=== PATIENT | male | born 1960 | race Two or more races ===

== ENCOUNTER 2024-03-28 11:14 | Emergency (ER) | payer SELFPAY ==
[~2024-03-28] VITALS: Ht 177.8 cm; Wt 79.3 kg
[2024-03-28 11:21] VITALS: O2SAT 95
[2024-03-28 12:19] LABS: BASOPHILS % 0.4 % (0.0-2.0); EOSINOPHILS % 3.6 % (0.0-5.0); HEMATOCRIT. 44.9 % (42.0-52.0); LYMPHOCYTES % 25.8 % (20.0-50.0); MEAN CORPUSCULAR HEMOGLOBIN 31.8 pg (28.0-32.0); MEAN CORPUSCULAR HGB CONC 33.4 g/dL (31.0-37.0); MEAN PLATELET VOLUME 7.9 fl (7.4-10.4); MONOCYTES % 10.5 % (2.0-8.0); NEUTROPHILS % 59.7 % (40.0-76.0); PLATELET 219 x1000/uL (130-400); RED BLOOD CELL COUNT 4.73 mill/uL (4.7-6.1); RED CELL DISTRIBUTION WIDTH 15.1 % (11.6-14.6); WHITE BLOOD COUNT 5.9 x1000/uL (4.5-11.0)
[2024-03-28 12:29] LABS: CHLORIDE 107 mEq/L (98-107); POTASSIUM 4.1 mEq/L (3.5-5.1); SODIUM 140 mEq/L (136-145)
[2024-03-28 12:30] LABS: CARBON DIOXIDE 28 mEq/L (21-32)
[2024-03-28 12:31] LABS: CALCIUM 8.7 mg/dL (8.7-10.4)
[2024-03-28 12:35] LABS: CREATININE 0.7 mg/dL (0.6-1.3)
[2024-03-28 12:36] LABS: GLUCOSE 102 mg/dL (70-105)
[2024-03-28 12:37] LABS: ALANINE AMINOTRANSFERASE 26 IU/L (10-49); ASPARTATE AMINOTRANSFERASE 32 IU/L (<34)
[2024-03-28 12:38] LABS: BILIRUBIN DIRECT 0.3 mg/dL (<=3.0); BILIRUBIN TOTAL 0.9 mg/dL (0.1-1.0); PROTEIN TOTAL 6.6 g/dL (6.0-8.3)
[2024-03-28 12:48] LABS: UREA NITROGEN BLOOD < 5 mg/dL (9-23)
[2024-03-28 13:29] LABS: BG BASE EXCESS 0.4 mmol/L (-2.0-2.0); BG CARBOXYHEMOGLOBIN 1.1 % (0.5-1.5); BG DEOXYHEMOGLOBIN 3.5 % (0.0-5.0); BG FRACTION INSPIRED OXYGEN 21; BG HCO3 ACT 23.8 mmol/L (22.0-26.0); BG METHEMOGLOBIN 0.1 % (0.0-1.5); BG OXYGEN SATURATION 96.5 % (92.0-98.5); BG OXYHEMOGLOBIN 95.3 % (94.0-97.0); BG PCO2 35.1 mmHg (35.0-45.0); BG PH 7.449 (7.350-7.450); BG PO2 87.2 mmHg (75.0-100.0); BG SAMPLE SITE RIGHT RADIAL; BG VENT MODE ROOM AIR
[2024-03-28] MEDS ORDERED: TOPUD MT (13:39)
[2024-03-28 14:30] VITALS: BP 137/67; PULSE 67; RESP 18; TEMP 98
== END 2024-03-28 14:29 | disposition home or self-care (01) ==
LOC: ER 11:14
DX: J06.9 Acute upper respiratory infection, unspecified (principal); Z98.890 Other specified postprocedural states
CPT/HCPCS: 36415; 36600; 71045; 80048; 80076; 82375; 82805; 85025; 99284

== ENCOUNTER 2024-06-13 09:18 | Inpatient (IN) | payer SELFPAY ==
[~2024-06-13] VITALS: Ht 182.9 cm; Wt 90.7 kg
[~2024-06-13 09:18] MED LIST: TOPUD MT
[2024-06-13] MEDS: KETOROLAC 15MG/ML VIAL IM ONE (10:52)
[2024-06-13] MEDS: GABAPENTIN 300MG CAPSULE PO ONE (10:52)
[2024-06-13 12:02] LABS: BASOPHILS % 0.3 % (0.0-2.0); HEMOGLOBIN. 15.6 g/dL (14.0-18.0); LYMPHOCYTES % 23.1 % (20.0-50.0); MEAN CORPUSCULAR HEMOGLOBIN 31.3 pg (28.0-32.0); MEAN CORPUSCULAR HGB CONC 32.6 g/dL (31.0-37.0); MEAN CORPUSCULAR VOLUME 96.1 fL (80.0-94.0); MEAN PLATELET VOLUME 7.9 fl (7.4-10.4); MONOCYTES % 11.1 % (2.0-8.0); NEUTROPHILS % 64.5 % (40.0-76.0); PLATELET 258 x1000/uL (130-400); RED BLOOD CELL COUNT 4.99 mill/uL (4.7-6.1); RED CELL DISTRIBUTION WIDTH 13.6 % (11.6-14.6); WHITE BLOOD COUNT 6.9 x1000/uL (4.5-11.0)
[2024-06-13 12:10] LABS: CHLORIDE 104 mEq/L (98-107); POTASSIUM 4.9 mEq/L (3.5-5.1); SODIUM 137 mEq/L (136-145)
[2024-06-13 12:12] LABS: CALCIUM 9.5 mg/dL (8.7-10.4); CARBON DIOXIDE 27 mEq/L (21-32)
[2024-06-13 12:16] LABS: CREATININE 0.9 mg/dL (0.6-1.3)
[2024-06-13 12:17] LABS: GLUCOSE 96 mg/dL (70-105); UREA NITROGEN BLOOD 7 mg/dL (9-23)
[2024-06-13 12:22] LABS: INR 0.9; PROTHROMBIN TIME 10.1 sec (9.6-11.0)
[2024-06-13] MEDS ORDERED: IPRATROPIUM/ALBUTEROL 0.5-3(2.5)MG/3ML NEB HHN PRN (14:15)
[2024-06-13] MEDS ORDERED: CLONIDINE 0.1MG TABLET PO PRN (14:15)
[2024-06-13] MEDS ORDERED: MAGNESIUM/ALUMINUM HYDROXIDE/SIMETHICONE 30ML UDC PO PRN (14:15)
[2024-06-13] MEDS ORDERED: ACETAMINOPHEN 325MG TABLET PO PRN ×2 (14:15)
[2024-06-13] MEDS ORDERED: ONDANSETRON HCL 4MG/2ML INJ IV PRN (14:15)
[2024-06-13] MEDS ORDERED: GUAIFENESIN 200MG/10ML SUGAR FREE UDC PO PRN (14:15)
[2024-06-13] MEDS ORDERED: NALOXONE HCL 0.4MG/ML VIAL IV PRN (14:30)
[2024-06-13] MEDS: ENOXAPARIN 40MG/0.4ML SYR SUBCUT SCH (15:16)
[2024-06-13 17:30] VITALS: BP 133/85; PULSE 58; RESP 20; TEMP 36.61404; TEMP 36.6404; O2SAT 99
[2024-06-13] MEDS: HYDROCODONE/ACETAMINOPHEN 5/325MG TABLET PO PRN (17:54)
[2024-06-13] MEDS ORDERED: SPIR100T5 PO (18:41)
[2024-06-13] MEDS ORDERED: ESTR20VI7 IM (18:43)
[2024-06-13 20:00] VITALS: BP 151/76; PULSE 72; RESP 18; TEMP 36.72516; O2SAT 98
[2024-06-13] MEDS: ATORVASTATIN CALCIUM 40MG TABLET PO SCH (21:05)
[2024-06-14] VITALS: BP 117/68; PULSE 58; RESP 18; TEMP 36.78072; O2SAT 97
[2024-06-14 00:55] LABS: CREATINE KINASE 58 IU/L (46-171)
[2024-06-14 00:57] LABS: TROPONIN I HIGH SENSITIVITY 4 ng/L (3.0-53)
[2024-06-14 04:00] VITALS: BP 118/55; PULSE 63; RESP 19; TEMP 36.61404; O2SAT 98
[2024-06-14 07:31] LABS: CARBON DIOXIDE 26 mEq/L (21-32); CHLORIDE 103 mEq/L (98-107); POTASSIUM 4.5 mEq/L (3.5-5.1); SODIUM 136 mEq/L (136-145)
[2024-06-14 07:32] LABS: CALCIUM 9.6 mg/dL (8.7-10.4)
[2024-06-14 07:36] LABS: GLUCOSE 80 mg/dL (70-105)
[2024-06-14 07:37] LABS: CREATINE KINASE 54 IU/L (46-171); TRIGLYCERIDE 269 mg/dL (0-150); TROPONIN I HIGH SENSITIVITY < 4 ng/L (3.0-53); UREA NITROGEN BLOOD 13 mg/dL (9-23)
[2024-06-14 07:38] LABS: LDL CHOLESTEROL 131 mg/dL (5-100)
[2024-06-14 07:39] LABS: CHOLESTEROL 212 mg/dL (<200); HDL CHOLESTEROL 45 mg/dL (>55); T4 FREE 1.22 ng/dL (0.89-1.76)
[2024-06-14 07:40] LABS: THYROID STIMULATING HORMONE 6.29 uIU/mL (0.55-4.78)
[2024-06-14 07:55] LABS: BASOPHILS % 0.4 % (0.0-2.0); EOSINOPHILS % 1.2 % (0.0-5.0); HEMATOCRIT. 48.1 % (42.0-52.0); HEMOGLOBIN. 15.8 g/dL (14.0-18.0); LYMPHOCYTES % 42.5 % (20.0-50.0); MEAN CORPUSCULAR HEMOGLOBIN 32.1 pg (28.0-32.0); MEAN CORPUSCULAR HGB CONC 32.9 g/dL (31.0-37.0); MEAN CORPUSCULAR VOLUME 97.5 fL (80.0-94.0); MEAN PLATELET VOLUME 8.7 fl (7.4-10.4); MONOCYTES % 12.4 % (2.0-8.0); NEUTROPHILS % 43.5 % (40.0-76.0); PLATELET 225 x1000/uL (130-400); RED BLOOD CELL COUNT 4.93 mill/uL (4.7-6.1); RED CELL DISTRIBUTION WIDTH 13.5 % (11.6-14.6); WHITE BLOOD COUNT 6.9 x1000/uL (4.5-11.0)
[2024-06-14 07:59] LABS: CLARITY URINE CLEAR (CLEAR); COLOR URINE YELLOW (YELLOW); GLUCOSE URINE NEGATIVE (NEGATIVE); KETONES URINE NEGATIVE (NEGATIVE); LEUKOCYTE ESTERASE URINE 2+ (NEGATIVE); NITRITE URINE NEGATIVE (NEGATIVE); OCCULT BLOOD URINE NEGATIVE (NEGATIVE); PH URINE 5.5 (4.5-8.0); PROTEIN URINE NEGATIVE (NEGATIVE); SPECIFIC GRAVITY URINE 1.012 (1.005-1.030); UROBILINOGEN URINE 0.2 E.U./dL (0.2-1.0)
[2024-06-14 08:00] VITALS: BP 122/70; PULSE 84; RESP 18; TEMP 36.55848; O2SAT 97
[2024-06-14 08:10] LABS: *AMPHETAMINES SCREEN URINE NEGATIVE (NEGATIVE); *BARBITURATES SCREEN URINE NEGATIVE (NEGATIVE); *BENZODIAZEPINES SCREEN URINE NEGATIVE (NEGATIVE); *COCAINE SCREEN URINE NEGATIVE (NEGATIVE); CANNABINOID URINE SCREEN NEGATIVE (NEGATIVE); ECSTASY MDMA SCREEN URINE NEGATIVE (NEGATIVE); METHADONE URINE SCREEN NEGATIVE (NEGATIVE); OPIATES URINE SCREEN PRESUMPTIVE POSITIVE (NEGATIVE); PHENCYCLIDINE URINE SCREEN NEGATIVE (NEGATIVE)
[2024-06-14 08:15] LABS: BACTERIA URINE 1+; RBC URINE 0-2 /hpf (0-2); SQUAMOUS EPITHELIAL CELL URINE NONE SEEN /lpf (RARE/1+); YEAST URINE NONE SEEN
[2024-06-14] MEDS: ASPIRIN 81MG TABLET PO SCH (09:03)
[2024-06-14 12:00] VITALS: BP 111/73; PULSE 89; RESP 18; TEMP 36.3918; O2SAT 98
[2024-06-14 16:00] VITALS: BP 110/71; PULSE 84; RESP 18; TEMP 36.6696; O2SAT 97
[2024-06-14] MEDS ORDERED: CYCLOBENZAPRINE 10MG TABLET PO PRN (18:30)
[2024-06-14 20:00] VITALS: BP 118/71; PULSE 55; RESP 18; TEMP 36.78072; O2SAT 97
[2024-06-15] VITALS: BP 145/65; PULSE 50; RESP 18; TEMP 36.3918; O2SAT 98
[2024-06-15 04:00] VITALS: BP 140/65; PULSE 54; RESP 18; TEMP 36.72516; O2SAT 97
[2024-06-15 08:00] VITALS: BP 144/87; PULSE 55; RESP 16; TEMP 35.8362; O2SAT 98
[2024-06-15] MEDS: SPIRONOLACTONE 50MG TABLET PO SCH (09:20)
[2024-06-15 09:37] LABS: BASOPHILS % 0.4 % (0.0-2.0); EOSINOPHILS % 1.4 % (0.0-5.0); HEMATOCRIT. 44.1 % (42.0-52.0); HEMOGLOBIN. 14.8 g/dL (14.0-18.0); LYMPHOCYTES % 30.8 % (20.0-50.0); MEAN CORPUSCULAR HEMOGLOBIN 32.8 pg (28.0-32.0); MEAN CORPUSCULAR HGB CONC 33.5 g/dL (31.0-37.0); MEAN CORPUSCULAR VOLUME 97.7 fL (80.0-94.0); MEAN PLATELET VOLUME 8.8 fl (7.4-10.4); MONOCYTES % 14.3 % (2.0-8.0); NEUTROPHILS % 53.1 % (40.0-76.0); PLATELET 216 x1000/uL (130-400); RED BLOOD CELL COUNT 4.51 mill/uL (4.7-6.1); RED CELL DISTRIBUTION WIDTH 13.7 % (11.6-14.6); WHITE BLOOD COUNT 6.3 x1000/uL (4.5-11.0)
[2024-06-15 09:54] LABS: CHLORIDE 104 mEq/L (98-107); POTASSIUM 4.3 mEq/L (3.5-5.1); SODIUM 137 mEq/L (136-145)
[2024-06-15 09:55] LABS: CARBON DIOXIDE 26 mEq/L (21-32)
[2024-06-15 09:56] LABS: CALCIUM 9.7 mg/dL (8.7-10.4)
[2024-06-15 10:00] LABS: CREATININE 0.8 mg/dL (0.6-1.3); GLUCOSE 86 mg/dL (70-105)
[2024-06-15 10:01] LABS: UREA NITROGEN BLOOD 11 mg/dL (9-23)
[2024-06-15 12:00] VITALS: BP 115/90; PULSE 50; RESP 16; TEMP 36.16956; O2SAT 96
[2024-06-15 16:00] VITALS: BP 121/80; PULSE 56; RESP 16; TEMP 36.33624; O2SAT 99
[2024-06-15] MEDS: DOCUSATE SODIUM 100MG CAPSULE PO PRN (19:23)
[2024-06-15 20:00] VITALS: BP 114/55; PULSE 65; RESP 18; TEMP 36.3918; O2SAT 98
[2024-06-16] VITALS: BP 149/89; PULSE 56; RESP 18; TEMP 36.6696; O2SAT 98
[2024-06-16 04:00] VITALS: BP 135/75; PULSE 50; RESP 18; TEMP 36.9474; O2SAT 96
[2024-06-16 07:39] LABS: CALCIUM 9.6 mg/dL (8.7-10.4); CARBON DIOXIDE 28 mEq/L (21-32); CHLORIDE 102 mEq/L (98-107); POTASSIUM 4.6 mEq/L (3.5-5.1); SODIUM 136 mEq/L (136-145)
[2024-06-16 07:45] LABS: CREATININE 0.9 mg/dL (0.6-1.3); GLUCOSE 90 mg/dL (70-105); UREA NITROGEN BLOOD 17 mg/dL (9-23)
[2024-06-16 08:00] VITALS: BP 110/81; PULSE 59; RESP 16; TEMP 36.3918; O2SAT 97
[2024-06-16 08:29] LABS: BASOPHILS % 0.5 % (0.0-2.0); EOSINOPHILS % 1.5 % (0.0-5.0); HEMATOCRIT. 46.8 % (42.0-52.0); HEMOGLOBIN. 15.3 g/dL (14.0-18.0); LYMPHOCYTES % 34.7 % (20.0-50.0); MEAN CORPUSCULAR HEMOGLOBIN 31.3 pg (28.0-32.0); MEAN CORPUSCULAR HGB CONC 32.6 g/dL (31.0-37.0); MEAN PLATELET VOLUME 9.1 fl (7.4-10.4); MONOCYTES % 12.4 % (2.0-8.0); NEUTROPHILS % 50.9 % (40.0-76.0); PLATELET 228 x1000/uL (130-400); RED BLOOD CELL COUNT 4.88 mill/uL (4.7-6.1); RED CELL DISTRIBUTION WIDTH 13.5 % (11.6-14.6); WHITE BLOOD COUNT 6.8 x1000/uL (4.5-11.0)
[2024-06-16 12:30] VITALS: BP 112/74; PULSE 62; RESP 16; TEMP 36.3918; O2SAT 96
[2024-06-16] MEDS: INFLUENZA VACCINE 05/PF 0.5 ML SYRINGE IM ONE (15:16)
[2024-06-16] MEDS: PNEUMOCOCCAL 20-VAL CONJ-DIP CRM 0.5ML IM ONE (15:19)
[2024-06-16 20:00] VITALS: BP 107/67; PULSE 66; RESP 20; TEMP 36.50292; O2SAT 98
[2024-06-17] VITALS: BP 112/74; PULSE 69; RESP 19; TEMP 36.55848; O2SAT 98
[2024-06-17 04:00] VITALS: BP 129/76; PULSE 58; RESP 20; TEMP 37.00296; O2SAT 100
[2024-06-17 05:45] LABS: BASOPHILS % 0.3 % (0.0-2.0); EOSINOPHILS % 1.6 % (0.0-5.0); HEMATOCRIT. 49.2 % (42.0-52.0); HEMOGLOBIN. 16.3 g/dL (14.0-18.0); LYMPHOCYTES % 31.4 % (20.0-50.0); MEAN CORPUSCULAR HEMOGLOBIN 31.9 pg (28.0-32.0); MEAN CORPUSCULAR HGB CONC 33.2 g/dL (31.0-37.0); MEAN CORPUSCULAR VOLUME 96.3 fL (80.0-94.0); MEAN PLATELET VOLUME 8.7 fl (7.4-10.4); NEUTROPHILS % 56.7 % (40.0-76.0); PLATELET 236 x1000/uL (130-400); RED BLOOD CELL COUNT 5.11 mill/uL (4.7-6.1); RED CELL DISTRIBUTION WIDTH 13.4 % (11.6-14.6); WHITE BLOOD COUNT 8.6 x1000/uL (4.5-11.0)
[2024-06-17 06:01] LABS: CHLORIDE 100 mEq/L (98-107); POTASSIUM 4.3 mEq/L (3.5-5.1); SODIUM 136 mEq/L (136-145)
[2024-06-17 06:02] LABS: CALCIUM 9.9 mg/dL (8.7-10.4); CARBON DIOXIDE 31 mEq/L (21-32)
[2024-06-17 06:07] LABS: GLUCOSE 96 mg/dL (70-105); UREA NITROGEN BLOOD 18 mg/dL (9-23)
[2024-06-17 08:00] VITALS: BP 135/86; PULSE 58; RESP 20; TEMP 35.89176; O2SAT 98
[2024-06-17 12:12] VITALS: BP 123/75; PULSE 58; RESP 20; TEMP 36.61404; O2SAT 97
[2024-06-17 16:06] VITALS: BP 134/80; PULSE 60; RESP 18; TEMP 36.05844; O2SAT 98
[2024-06-17 16:41] VITALS: BP 122/85; PULSE 66; TEMP 97.7; O2SAT 100
== END 2024-06-17 18:05 | disposition home or self-care (01) | DRG 347 ==
LOC: ER 09:18 → 7WST 13:22 → EDBEDREQ 13:31 → EDBEDREQSVC 15:18 → 7WST 17:51
PROVIDERS: ADMIT Internal Medicine; ATTEND Internal Medicine
DX: M47.816 Spondylosis without myelopathy or radiculopathy, lumbar region (principal); F64.0 Transsexualism; M54.32 Sciatica, left side; R53.1 Weakness; M16.0 Bilateral primary osteoarthritis of hip; J44.89 Other specified chronic obstructive pulmonary disease; I69.398 Other sequelae of cerebral infarction; Z79.82 Long term (current) use of aspirin; Z87.891 Personal history of nicotine dependence; Z88.5 Allergy status to narcotic agent
CPT/HCPCS: 36415; 72148; 72170; 80048; 80061; 80305; 81003; 82550; 84439; 84443; 84484; 85025; 90686; 90732; 93970; 97162; 97165; 97535; 99285; J1650; J1885